=== PATIENT | female | born 1960 | race Caucasian/White ===

== ENCOUNTER 2020-08-18 08:36 | Outpatient (CLI) | payer OTHER ==
--- NOTE | 2020-08-18 09:50 | MRI ---
MRI of thebrain with and without contrast: 08/18/2020 COMPARISON:04/12/2020 HISTORY:Evaluate meningioma status post surgical resection TECHNIQUE: Multiplanar multisequence MR imaging of thebrain with and without contrast Findings:The diffusion weighted imaging demonstrates no evidence for acute infarction. The axial gradient echo imaging demonstrates linear blooming artifact within the posterior fossa with in the folia of the left cerebellar hemisphere suggesting residual blood products associated with hemorrhage seen on the 04/14/[address] There are a few scattered areas of blooming artifact within bilateral frontal lobes on the basis of m inimal blood products associated with prior tumor resection. There is evidence of frontal craniotomy. There is extensive encephalomalacia involving bilateral frontal lobes, left greater than right, with extensive volume loss and complex increased T2 signal involving the periventricular, deep, and subcortical white matter of bilateral frontal lobes, left greater than right. The postcontr ast imaging demonstrates extensive dural based enhancement at the postoperative site along the anterior margin of bilateral frontal lobes, left greater than right, most prominent superiorly. No ma sslike enhancement is noted and thus the dural based enhancement in bilateral frontal regions is felt to most likely represent postoperative change with no obvious recurrent/residual tumor present. Continued follow-up suggested. The imaged paranasal sinuses and mastoid air cells are grossly unremarkable. Prominent Virchow-Uriel spaces are present within the basal ganglia, left greater than right. Arteria l flow voids at the axial level of the skull base appear unremarkable on the T2-weighted imaging. IMPRESSION:Interval frontal craniotomy secondary to meningioma resection. Extensive bifrontal encepha lomalacia, left greater than right. Dural based enhancement at the postoperative site is likely on the basis of postoperative change. There is no convincing evidence for residual/recurrent tumor. Cont inued follow-up suggested.
[2020-08-18] MEDS ORDERED: Magnevist 469MG/ML 20 ML VIAL ONE (13:12)
== END 2020-08-18 08:37 | disposition home or self-care (01) ==
LOC: TBSIIMAG 08:36
PROVIDERS: ATTEND Surgery
DX: D32.0 Benign neoplasm of cerebral meninges (principal); G93.89 Other specified disorders of brain; Z98.890 Other specified postprocedural states
CPT/HCPCS: 70553; A9579

== ENCOUNTER → 2022-09-21 | Outpatient (CLI) | payer MEDICARE, OTHER | LOC: PET 08:15 | PROVIDERS: ATTEND Internal Medicine | DX: C34.11 Malignant neoplasm of upper lobe, right bronchus or lung (principal); R91.8 Other nonspecific abnormal finding of lung field; N13.5 Crossing vessel and stricture of ureter without hydronephrosis; R94.8 Abnormal results of function studies of other organs and systems; J18.9 Pneumonia, unspecified organism | CPT/HCPCS: 78815; A9552 ==

== ENCOUNTER 2022-09-22 11:43 | Outpatient (CLI) | payer MEDICARE, OTHER | END 2022-09-22 11:44 | disposition home or self-care (01) | LOC: SCSMRI 11:43 | PROVIDERS: ATTEND Internal Medicine | DX: C34.90 Malignant neoplasm of unspecified part of unspecified bronchus or lung (principal); D32.0 Benign neoplasm of cerebral meninges; R91.8 Other nonspecific abnormal finding of lung field; Z98.890 Other specified postprocedural states | CPT/HCPCS: 70553 ==

== ENCOUNTER 2022-10-02 08:37 | Day surgery (SDC) | payer OTHER ==
[2022-09-29 12:46] VITALS: BMI 25.8
[2022-10-02] MEDS ORDERED: Ipratropium/Albuterol 3 ML NEB ONE (09:10)
[2022-10-02] MEDS ORDERED: fentaNYL PF 100 MCG/2 ML SYRINGE ONE (09:55)
[2022-10-02] MEDS ORDERED: Lidocaine 1% PF 5 ML VIAL ONE (11:02)
[2022-10-02] MEDS ORDERED: Glycopyrrolate 0.2 MG/ML 5 ML SYRINGE ONE (11:02)
[2022-10-02] MEDS ORDERED: Rocuronium Bromide 10 MG/ML (10ML VIAL) ONE (11:02)
[2022-10-02] MEDS ORDERED: Metoprolol Tartrate 5 MG/5 ML VIAL ONE (11:02)
[2022-10-02] MEDS ORDERED: Dexamethasone 20 MG/5 ML VIAL ONE (11:02)
[2022-10-02] MEDS ORDERED: NEOSTIGMINE 3 MG/3 ML SYR 3 MG/3 ML SYRINGE ONE (11:02)
[2022-10-02] MEDS ORDERED: PROPOFOL 200 MG/20 ML VIAL ONE (11:02)
[2022-10-02] MEDS ORDERED: Albuterol HFA (OR) 200 PUFF INH ONE ×2 (11:02→11:42)
[2022-10-02] MEDS ORDERED: Ondansetron PF 4 MG/2 ML Vial ONE (11:02)
[2022-10-02] MEDS ORDERED: Tranexamic Acid 1,000 MG/10 ML VIAL ONE (12:34)
[2022-10-02] MEDS ORDERED: SUGAMMADEX SODIUM 200 MG/2 ML VIAL ONE (13:02)
[2022-10-04 13:17] LABS: Fungus Stain Final report (.)
== END 2022-10-02 15:30 | disposition home or self-care (01) ==
LOC: SDC 08:37
PROVIDERS: ATTEND Internal Medicine
PROC: 0BBC8ZX Excision of Right Upper Lung Lobe, Via Natural or Artificial Opening Endoscopic, Diagnostic (ICD-10-PCS; principal; 2022-10-02)
PROC: 0B9C8ZX Drainage of Right Upper Lung Lobe, Via Natural or Artificial Opening Endoscopic, Diagnostic (ICD-10-PCS; 2022-10-02)
PROC: 07B74ZX Excision of Thorax Lymphatic, Percutaneous Endoscopic Approach, Diagnostic (ICD-10-PCS; 2022-10-02)
DX: C34.11 Malignant neoplasm of upper lobe, right bronchus or lung (principal); C77.1 Secondary and unspecified malignant neoplasm of intrathoracic lymph nodes; E11.9 Type 2 diabetes mellitus without complications; E78.00 Pure hypercholesterolemia, unspecified; G20 Parkinson's disease; G25.81 Restless legs syndrome; Z86.011 Personal history of benign neoplasm of the brain; Z87.891 Personal history of nicotine dependence; Z79.84 Long term (current) use of oral hypoglycemic drugs; Z79.899 Other long term (current) drug therapy
CPT/HCPCS: 71045; 87070; 87077; 87102; 87116; 87206; 88112; 88172; 88173; 88305; 88341; 88342; J1100; J2405; J2704; J7620

== ENCOUNTER 2022-10-10 11:16 | Outpatient (CLI) | payer OTHER | END 2022-10-10 11:17 | disposition home or self-care (01) | LOC: SCSMRI 11:16 | PROVIDERS: ATTEND Internal Medicine | DX: C34.90 Malignant neoplasm of unspecified part of unspecified bronchus or lung (principal); R93.6 Abnormal findings on diagnostic imaging of limbs; C79.89 Secondary malignant neoplasm of other specified sites ==

== ENCOUNTER 2022-11-07 18:33 | Observation (INO) | payer MEDICARE ==
[2022-11-07 19:20] LABS: #Eosinphils 0.1 thou/uL (0.0-0.7); #Lymphocytes 0.6 thou/uL (1.20-3.40); #Monocytes 0.2 thou/uL (0.11-0.59); #Neutrophils 3.4 thou/uL (1.40-6.50); %Basophils 0.2 % (0.0-1.0); %Eosinophils 1.9 % (0.0-10.0); %Lymphocytes 13.1 % (21.0-51.0); %Monocytes 4.1 % (0.0-10.0); %Neutrophils 80.7 % (42.0-75.0); Hemoglobin 10.5 g/dL (12.0-16.0); Mean Corpuscular HGB CONC 33.5 g/dL (32.0-36.0); Mean Corpuscular Hemoglobin 30.4 pg (27.0-31.0); Mean Corpuscular Volume 90.6 fl (78.0-98.0); Red Blood Cell (RBC) Count 3.46 mill/uL (4.20-5.40); White Blood Cell (WBC) Count 4.2 10x3/uL (4.8-10.8)
[2022-11-07 19:36] LABS: MDiff Complete? YES; Mean Platelet Volume 10.7 fL (7.4-10.4); Platelet Count 119 10x3/uL (130-400); Platelet Morphology Comment Appears Decreased; Polychromasia SLIGHT = 2-3 cells (100X) (0-2/hpf)
[2022-11-07 19:41] LABS: ALT (SGPT) 15 U/L (8-55); AST (SGOT) 19 U/L (5-34); Albumin 3.4 g/dL (3.4-4.8); Alkaline Phosphatase 86 U/L (40-110); Anion Gap 16 mmol/L (10-20); BUN (Urea Nitrogen) 22 mg/dL (9.8-20.1); Bilirubin, Total 0.6 mg/dL (0.2-1.2); Calc. Creatinine Clearance 0 mL/min (70-130); Calcium 10.7 mg/dL (7.8-10.44); Carbon Dioxide 24 mmol/L (23-31); Chloride 95 mmol/L (98-107); Estimated GFR 66; Globulin 4.2 g/dL (2.4-3.5); Glucose 302 mg/dL (80-115); Lipase 16 U/L (8-78); Magnesium 1.4 mg/dL (1.6-2.6); Potassium 4.1 mmol/L (3.5-5.1); Protein, Total 7.6 g/dL (5.8-8.1); Sodium 131 mmol/L (136-145)
[2022-11-07 21:10] LABS: Bacteria/HPF 2+ HPF (None Seen); Bilirubin Negative (Negative); Blood, Urine Negative (Negative); Clarity Turbid (Clear); Glucose, Urine (Dipstick) 150 mg/dL (Negative); Ketone, Urine Negative (Negative); Leukocyte Negative Leu/uL (Negative); Nitrite Negative (Negative); Protein, Urine (Dipstick) 30 mg/dL (Neg-Trace); RBC/HPF 0-3 HPF (0-3); Urobilinogen Normal mg/dL (Less than 2); WBC/HPF 0-3 HPF (0-3); Yeast-Budding 1+ HPF (None Seen)
[2022-11-07] MEDS ORDERED: Magnesium 2 GM/50 ML BAG (IN WATER) ONE (22:04)
[2022-11-07] MEDS ORDERED: Acetaminophen 325 MG TAB PO PRN (22:32)
[2022-11-07] MEDS ORDERED: Ondansetron PF 4 MG/2 ML Vial IVP PRN (22:32)
[2022-11-07] MEDS ORDERED: HumaLOG 300 UNITS/3 ML VIAL SC PRN ×2 (22:33)
[2022-11-07] MEDS ORDERED: Dextrose 50% Abboject 50 ML SYRINGE SLOW IVP PRN (22:33)
[2022-11-07] MEDS ORDERED: Dextrose 5% in Water 1,000 ML IV PRN (22:33)
[2022-11-08] MEDS ORDERED: Sodium Chloride 0.9% 1,000 ML IV SCH (04:00)
[2022-11-08 06:08] LABS: #Eosinphils 0.1 thou/uL (0.0-0.7); #Lymphocytes 0.4 thou/uL (1.20-3.40); #Monocytes 0.2 thou/uL (0.11-0.59); #Neutrophils 2.9 thou/uL (1.40-6.50); %Basophils 0.7 % (0.0-1.0); %Eosinophils 2.2 % (0.0-10.0); %Lymphocytes 10.2 % (21.0-51.0); %Monocytes 5.4 % (0.0-10.0); %Neutrophils 81.5 % (42.0-75.0); Hemoglobin 9.1 g/dL (12.0-16.0); Mean Corpuscular HGB CONC 32.1 g/dL (32.0-36.0); Mean Corpuscular Hemoglobin 29.4 pg (27.0-31.0); Mean Corpuscular Volume 91.6 fl (78.0-98.0); Mean Platelet Volume 9.8 fL (7.4-10.4); Platelet Count 126 10x3/uL (130-400); White Blood Cell (WBC) Count 3.5 10x3/uL (4.8-10.8)
[2022-11-08 06:15] LABS: Anion Gap 12 mmol/L (10-20); BUN (Urea Nitrogen) 15 mg/dL (9.8-20.1); Calc. Creatinine Clearance 0 mL/min (70-130); Calcium 9.8 mg/dL (7.8-10.44); Carbon Dioxide 27 mmol/L (23-31); Chloride 97 mmol/L (98-107); Estimated GFR 74; Glucose 254 mg/dL (80-115); Magnesium 1.9 mg/dL (1.6-2.6); Potassium 3.8 mmol/L (3.5-5.1); Sodium 132 mmol/L (136-145)
[2022-11-08 06:44] VITALS: BMI 23.1
[2022-11-08 08:01] VITALS: TEMP 98.4
[2022-11-08] MEDS ORDERED: Senokot S 8.6-50 MG TAB PO SCH (09:00)
[2022-11-08] MEDS ORDERED: Oxybutynin 5 MG TAB PO SCH (09:00)
[2022-11-08] MEDS ORDERED: Atorvastatin Calcium 20 MG TAB PO SCH (09:00)
[2022-11-08] MEDS: Nystatin 500,000 UNITS/5 ML UDCUP SSW SCH ×3 (09:59→16:56)
[2022-11-08] MEDS ORDERED: FLU VACC QS2022-23(6MOS UP)/PF 60 MCG/0.5 ML SYRINGE IM ONE (14:00)
[2022-11-08 16:45] VITALS: BP 155/81
[2022-11-08] MEDS ORDERED: rOPINIRole HCl 1 MG TAB PO SCH (21:00)
[2022-11-08] MEDS ORDERED: Atorvastatin Calcium 40 MG TAB PO SCH (21:00)
== END 2022-11-08 18:27 | disposition home health service (06) ==
LOC: ERS 18:33 → SJJU 22:07
PROVIDERS: ADMIT Internal Medicine; ATTEND Internal Medicine
DX: R53.1 Weakness (principal); R06.02 Shortness of breath; R29.6 Repeated falls; C34.11 Malignant neoplasm of upper lobe, right bronchus or lung; D63.0 Anemia in neoplastic disease; E83.42 Hypomagnesemia; E83.52 Hypercalcemia; B37.0 Candidal stomatitis; E87.1 Hypo-osmolality and hyponatremia; D61.818 Other pancytopenia; E11.9 Type 2 diabetes mellitus without complications; I10 Essential (primary) hypertension; E78.00 Pure hypercholesterolemia, unspecified; F12.11 Cannabis abuse, in remission; G25.81 Restless legs syndrome; Z85.841 Personal history of malignant neoplasm of brain; Z87.891 Personal history of nicotine dependence; Z79.84 Long term (current) use of oral hypoglycemic drugs; Z79.899 Other long term (current) drug therapy; Z20.822 Contact with and (suspected) exposure to COVID-19
CPT/HCPCS: 70450; 71045; 80048; 80053; 83605; 83690; 83735 ×2; 84484; 85025 ×2; 93005; 96365; 97116; 99285; G0378 ×3; U0003; U0005; 36415; 81003; 81015; J1642; J3475; J7050

== ENCOUNTER 2023-01-08 14:19 | Inpatient (IN) | payer OTHER ==
[~2023-01-08 14:19] MED LIST: Iopamidol-370 76% 500 ML MDV (1 ML CHARGE) ONE
[2023-01-08 15:06] LABS: #Lymphocytes 0.6 thou/uL (1.20-3.40); #Monocytes 0.8 thou/uL (0.11-0.59); #Neutrophils 7.7 thou/uL (1.40-6.50); %Basophils 0.1 % (0.0-1.0); %Eosinophils 0.3 % (0.0-10.0); %Lymphocytes 6.3 % (21.0-51.0); %Monocytes 8.8 % (0.0-10.0); %Neutrophils 84.6 % (42.0-75.0); Hemoglobin 10.5 g/dL (12.0-16.0); Mean Corpuscular HGB CONC 31.2 g/dL (32.0-36.0); Mean Corpuscular Hemoglobin 29.6 pg (27.0-31.0); Mean Corpuscular Volume 94.9 fl (78.0-98.0); Platelet Count 225 10x3/uL (130-400); RBC Distribution Width 20.8 % (11.5-14.5); Red Blood Cell (RBC) Count 3.53 mill/uL (4.20-5.40); White Blood Cell (WBC) Count 9.1 10x3/uL (4.8-10.8)
[2023-01-08 15:32] LABS: ALT (SGPT) 9 U/L (8-55); AST (SGOT) 12 U/L (5-34); Albumin 3.7 g/dL (3.4-4.8); Alkaline Phosphatase 91 U/L (40-110); Anion Gap 18 mmol/L (10-20); BUN (Urea Nitrogen) 11 mg/dL (9.8-20.1); Bilirubin, Total 0.7 mg/dL (0.2-1.2); Calc. Creatinine Clearance 0 mL/min (70-130); Calcium 10.2 mg/dL (7.8-10.44); Carbon Dioxide 18 mmol/L (23-31); Chloride 104 mmol/L (98-107); Estimated GFR 83; Globulin 3.7 g/dL (2.4-3.5); Glucose 181 mg/dL (80-115); Potassium 4.1 mmol/L (3.5-5.1); Protein, Total 7.4 g/dL (5.8-8.1); Sodium 136 mmol/L (136-145)
[2023-01-08] MEDS ORDERED: Cefepime 2 GM VIAL ONE (15:52)
[2023-01-08 16:20] LABS: Bacteria/HPF 4+ HPF (None Seen); Bilirubin Negative (Negative); Blood, Urine Negative (Negative); Clarity Turbid (Clear); Glucose, Urine (Dipstick) Normal (Negative); Ketone, Urine Negative (Negative); Leukocyte 75 Leu/uL (Negative); Nitrite Negative (Negative); Protein, Urine (Dipstick) 100 mg/dL (Neg-Trace); RBC/HPF 0-3 HPF (0-3); Specific Gravity, Urine 1.033 (1.002-1.036); Squamous Epithelial 0-3 HPF (0-3); Yeast-Budding 2+ HPF (None Seen); pH, Urine 5.5 (5.0-9.0)
[2023-01-08] MEDS ORDERED: VANCOMYCIN 1.75 GM/500 ML BAG 1.75 GM in Premix Bag 1 BAG IVPB SCH (17:15)
[2023-01-08] MEDS ORDERED: Acetaminophen 500 MG TAB ONE (17:21)
[2023-01-08] MEDS ORDERED: Dextrose 50% Abboject 50 ML SYRINGE SLOW IVP PRN (17:41)
[2023-01-08] MEDS ORDERED: Dextrose 5% in Water 1,000 ML IV PRN (17:41)
[2023-01-08] MEDS ORDERED: HumaLOG 300 UNITS/3 ML VIAL SC PRN ×2 (17:47)
[2023-01-08 18:47] LABS: Lactic Acid 1.5 mmol/L (0.5-2.2)
[2023-01-08] MEDS: Lactated Ringer's 1,000 ML IV SCH (20:15)
[2023-01-08] MEDS: rOPINIRole HCl 1 MG TAB PO SCH (20:16)
[2023-01-08] MEDS: Oxybutynin 5 MG TAB PO SCH (20:16)
[2023-01-08 21:51] VITALS: BMI 22.2
[2023-01-09] MEDS: Lactated Ringer's 1,000 ML IV SCH ×3 (03:25→20:06)
[2023-01-09 04:53] LABS: #Eosinphils 0.1 thou/uL (0.0-0.7); #Lymphocytes 0.8 thou/uL (1.20-3.40); #Monocytes 0.7 thou/uL (0.11-0.59); #Neutrophils 5.9 thou/uL (1.40-6.50); %Basophils 0.3 % (0.0-1.0); %Eosinophils 1.3 % (0.0-10.0); %Lymphocytes 11.1 % (21.0-51.0); %Monocytes 8.9 % (0.0-10.0); %Neutrophils 78.4 % (42.0-75.0); Hemoglobin 8.8 g/dL (12.0-16.0); Mean Corpuscular HGB CONC 33.2 g/dL (32.0-36.0); Mean Corpuscular Hemoglobin 31.6 pg (27.0-31.0); Mean Corpuscular Volume 95.1 fl (78.0-98.0); Mean Platelet Volume 8.8 fL (7.4-10.4); Platelet Count 192 10x3/uL (130-400); RBC Distribution Width 20.3 % (11.5-14.5); White Blood Cell (WBC) Count 7.5 10x3/uL (4.8-10.8)
[2023-01-09 05:15] LABS: ALT (SGPT) 8 U/L (8-55); AST (SGOT) 10 U/L (5-34); Albumin 2.9 g/dL (3.4-4.8); Alkaline Phosphatase 68 U/L (40-110); Anion Gap 14 mmol/L (10-20); BUN (Urea Nitrogen) 8 mg/dL (9.8-20.1); Bilirubin, Total 0.7 mg/dL (0.2-1.2); Calc. Creatinine Clearance 90 mL/min (70-130); Calcium 9.7 mg/dL (7.8-10.44); Carbon Dioxide 19 mmol/L (23-31); Chloride 108 mmol/L (98-107); Estimated GFR 98; Globulin 3.5 g/dL (2.4-3.5); Glucose 125 mg/dL (80-115); Potassium 3.8 mmol/L (3.5-5.1); Protein, Total 6.4 g/dL (5.8-8.1); Sodium 137 mmol/L (136-145)
[2023-01-09] MEDS: metFORMIN 500 MG TAB PO SCH ×2 (08:39→17:37)
[2023-01-09] MEDS: Oxybutynin 5 MG TAB PO SCH ×2 (08:40→20:06)
[2023-01-09] MEDS: Atorvastatin Calcium 20 MG TAB PO SCH (08:46)
[2023-01-09] MEDS ORDERED: Azithromycin 500 MG in Sodium Chloride 0.9% 250 ML 250 ML IVPB SCH (09:00)
[2023-01-09] MEDS ORDERED: cefTRIAXone\\ROCEPHIN 1 GM in Sodium Chloride 0.9% 100 ML IVPB SCH (09:00)
[2023-01-09] MEDS ORDERED: Benzonatate 100 MG CAP PO PRN (16:51)
[2023-01-09] MEDS: rOPINIRole HCl 1 MG TAB PO SCH (20:06)
[2023-01-10 05:10] LABS: #Eosinphils 0.2 thou/uL (0.0-0.7); #Lymphocytes 1.1 thou/uL (1.20-3.40); #Monocytes 0.5 thou/uL (0.11-0.59); #Neutrophils 4.1 thou/uL (1.40-6.50); %Basophils 0.3 % (0.0-1.0); %Eosinophils 2.8 % (0.0-10.0); %Lymphocytes 18.7 % (21.0-51.0); %Monocytes 8.3 % (0.0-10.0); %Neutrophils 69.9 % (42.0-75.0); Hemoglobin 8.6 g/dL (12.0-16.0); Mean Corpuscular HGB CONC 32.4 g/dL (32.0-36.0); Mean Corpuscular Hemoglobin 30.9 pg (27.0-31.0); Mean Corpuscular Volume 95.1 fl (78.0-98.0); Mean Platelet Volume 8.7 fL (7.4-10.4); Platelet Count 211 10x3/uL (130-400); RBC Distribution Width 20.5 % (11.5-14.5); Red Blood Cell (RBC) Count 2.78 mill/uL (4.20-5.40); White Blood Cell (WBC) Count 5.8 10x3/uL (4.8-10.8)
[2023-01-10 05:29] LABS: ALT (SGPT) Less than 7 U/L (8-55); AST (SGOT) 11 U/L (5-34); Albumin 2.9 g/dL (3.4-4.8); Alkaline Phosphatase 72 U/L (40-110); Anion Gap 12 mmol/L (10-20); BUN (Urea Nitrogen) 6 mg/dL (9.8-20.1); Bilirubin, Total 0.3 mg/dL (0.2-1.2); Calc. Creatinine Clearance 87 mL/min (70-130); Calcium 10.1 mg/dL (7.8-10.44); Carbon Dioxide 23 mmol/L (23-31); Chloride 109 mmol/L (98-107); Estimated GFR 98; Globulin 3.6 g/dL (2.4-3.5); Glucose 123 mg/dL (80-115); Potassium 3.6 mmol/L (3.5-5.1); Protein, Total 6.5 g/dL (5.8-8.1); Sodium 140 mmol/L (136-145)
[2023-01-10] MEDS: Lactated Ringer's 1,000 ML IV SCH (05:35)
[2023-01-10 08:31] VITALS: BP 139/79; TEMP 98.6
[2023-01-10] MEDS ORDERED: Amoxicillin/Potassium Clav 875 MG TAB PO SCH (09:00)
[2023-01-10] MEDS ORDERED: Azithromycin 250 MG TAB PO SCH (09:00)
[2023-01-10] MEDS ORDERED: Apixaban 5 MG TAB PO SCH (09:00)
[2023-01-10] MEDS: Atorvastatin Calcium 20 MG TAB PO SCH (09:17)
[2023-01-10] MEDS: Oxybutynin 5 MG TAB PO SCH (09:17)
[2023-01-10] MEDS: metFORMIN 500 MG TAB PO SCH (09:17)
== END 2023-01-10 13:00 | disposition home health service (06) | DRG 871 ==
LOC: ERS 14:19 → ERHOLD 16:59 → 2NO 18:58
PROVIDERS: ADMIT Family Medicine; ATTEND Family Medicine
DX: A41.9 Sepsis, unspecified organism (principal); J18.9 Pneumonia, unspecified organism; C34.90 Malignant neoplasm of unspecified part of unspecified bronchus or lung; N39.0 Urinary tract infection, site not specified; I82.C12 Acute embolism and thrombosis of left internal jugular vein; Z66 Do not resuscitate; R29.6 Repeated falls; E11.9 Type 2 diabetes mellitus without complications; Z79.84 Long term (current) use of oral hypoglycemic drugs; Z79.01 Long term (current) use of anticoagulants; Z79.899 Other long term (current) drug therapy; Z90.710 Acquired absence of both cervix and uterus
CPT/HCPCS: 36415; 36416; 71045; 71275; 80053; 81003; 81015; 83605; 83880; 84145; 84484; 85025; 87040; 87077; 87086; 87186; 93005; 94760; 96365; 96366; 96367; J0456; J0692; J0696; J1642; J3370; J3490; J7050; J7120; Q9967

== ENCOUNTER → 2023-01-18 | Outpatient (CLI) | payer OTHER | LOC: PET 08:45 | PROVIDERS: ATTEND Internal Medicine | DX: C34.11 Malignant neoplasm of upper lobe, right bronchus or lung (principal) | CPT/HCPCS: 78815; A9552 ==